=== PATIENT | female | born 2005 | race African-American/Black ===

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

== ENCOUNTER 2024-01-29 16:24 | Emergency (ER) | payer OTHER, SELFPAY ==
[2024-01-29 16:40] VITALS: BP 114/68; PULSE 71; RESP 16; TEMP 36.6; O2SAT 99
--- NOTE | 2024-01-29 16:53 | ED.URI ---
HPI - URI/Sore Throat General Chief Complaint: Upper Respiratory Infection Stated Complaint: Sore Throat Time Seen by Provider: 01/29/24 17:10 Source: patient and RN notes reviewed Mode of arrival: ambulatory Limitations: no limitations History of Present Illness HPI Narrative: 18-year-old female presents with concern for 4 day history of sore throat, one-week history of cough. She denies fever, aches, chills, sweats. Reports she has not been taking anything [id number]. MD elicited complaint: cough and sore throat Related Data Home Medications Medication Instructions Recorded Confirmed lamotrigine 25 mg tablet 25 mg DIRECTED 06/05/22 01/29/24 olanzapine 2.5 mg tablet 2.5 mg DIRECTED 06/05/22 01/29/24 hydroxyzine HCl 25 mg tablet 25 mg PO TID 01/29/24 01/29/24 lurasidone 40 mg tablet 40 mg PO DAILY 01/29/24 01/29/24 Allergies Allergy/AdvReac Type Severity Reaction Status Date / Time No Known Allergies Allergy Verified 01/13/23 15:38 Review of Systems Review of Systems: CONSTITUTIONAL: Denies malaise, chills, sweats, or fever. EYES: Denies visual changes, redness, or discharge. ENT: Reports rhinorrhea, congestion, and sore throat. CARDIOVASCULAR: Denies chest pain, palpitations, or edema. RESPIRATORY: Reports cough. Denies dyspnea. GASTROINTESTINAL: Denies abdominal pain, nausea, vomiting, diarrhea SKIN: Denies rash or itching. MUSCULOSKELETAL: Denies myalgia. NEUROLOGIC: Denies headache. All systems reviewed & are unremarkable except as noted in HPI and below PMFSH Past Medical History Medical History ADD (attention deficit disorder) Bipolar 1 disorder PTSD (post-traumatic stress disorder) Surgical History Surgical History No pertinent past surgical history Family History Family History Mother Family history non-contributory Social History Social History Substance use: current Substance use type: marijuana Living arrangements: with family Gender identity (if verbalized by the patient): Female Spiritual care concerns: No Comments At time of signature, agree with nursing past medical, surgical, social and family history. There is no relevant family history pertinent to the presenting complaint Exam Narrative: GENERAL: Well-appearing, well-nourished, and in no acute distress. HEAD: Normocephalic EYES: PERRLA, conjunctivae clear ENT: Nares clear. Mucous membranes moist. TM pearly gomez with discharge light reflex bilaterally; no tragal tenderness. Oropharynx not erythematous without lesions. Tonsils not enlarged and without exudate, no drooling, no hoarseness, no trismus, uvula midline. NECK: Supple. No lymphadenopathy CHEST: Clear to auscultation, breath sounds equal. No wheezing, rhonchi, rales, or stridor. No respiratory distress, speaks in full sentences. HEART: Regular rate and rhythm. No murmur heard. SKIN: Warm, dry, no rash. NEURO: Alert and oriented x3. PSYCH: Normal mood and affect Course Course Emergency Course: Patient is aware of diagnosis, understands and agrees to treatment plan. Anticipatory guidance given. Patient agrees to follow-up as directed and is aware of reasons to seek care at the emergency department. Portions of this record may have been created with voice recognition software Level of Care: Express Care Visit Vital Signs Vital signs: Vital Signs Temperature 98 F 01/29/24 16:40 Pulse Rate 71 01/29/24 16:40 Respiratory Rate 16 01/29/24 16:40 Blood Pressure 114/68 01/29/24 16:40 Pulse Oximetry 99 01/29/24 16:40 Oxygen Delivery Room Air 01/29/24 16:40 Temperature 98 F 01/29/24 16:40 Pulse Rate 71 01/29/24 16:40 Respiratory Rate 16 01/29/24 16:40 Blood Pressure 114
[2024-01-29 17:15] LABS: EDCOVIDSCREEN Negative (Negative); EDSTREPNEGPOS1 Negative (Negative)
== END 2024-01-29 17:20 | disposition home or self-care (01) ==
PROVIDERS: Emergency Provider Nurse Practitioner; PCP Pediatrics
DX: J06.9 Acute upper respiratory infection, unspecified (principal); F98.8 Other specified behavioral and emotional disorders with onset usually occurring in childhood and adolescence; F31.9 Bipolar disorder, unspecified; Z20.822 Contact with and (suspected) exposure to COVID-19
CPT/HCPCS: 87081; 87635; 87880; 99213; G0463